=== PATIENT | female | born 1990 | race African-American/Black ===

== ENCOUNTER 2017-06-06 10:01 | Emergency (ER) | payer MEDICAID ==
[~2017-06-06] VITALS: Ht 162.6 cm; Wt 79.4 kg
[2017-06-06 10:01] VITALS: BP 147/94
[~2017-06-06 10:01] MED LIST: BENADRYL25 MG ORAL; BENADRYL50 MG ORAL; KEFLEX500 MG ORAL; NKM; PREDNISONE20 MG ORAL; RANITIDINE HCL150 MG ORAL
[2017-06-06] MEDS ORDERED: NKM (10:17)
[2017-06-06] MEDS ORDERED: DiphenhydrAMINE 50mg/ml Inj IM ONE (10:45)
[2017-06-06 11:25] LABS: APPEARANCE,URINE CLOUDY; KETONES,URINE NEGATIVE (NEGATIVE); LEUKOCYTE ESTERASE ,URINE NEGATIVE (NEGATIVE); NITRITE,URINE POSITIVE (NEGATIVE); PH,URINE 6 (4.5-8.0); PROTEIN,URINE NEGATIVE (NEGATIVE); UROBILINOGEN,URINE NORMAL MG/DL (0.0-1.0)
[2017-06-06 11:32] LABS: BACTERIA,URINE MANY /HPF; SQUAMOUS EPITHELIAL CELL,UR MODERATE /LPF (NONE/OCC); WBC,URINE 0-2 /HPF (0 - 2)
[2017-06-06] MEDS ORDERED: BENADRYL25 MG ORAL (12:23)
[2017-06-06] MEDS ORDERED: PREDNISONE20 MG ORAL (12:23)
[2017-06-06] MEDS ORDERED: Bacitracin Oint UD TOPIC ONE (12:28)
[2017-06-06 12:38] VITALS: BP 147/94
--- NOTE | 2017-06-07 14:15 | Emergency Room Report ---
History of Present Illness General Chief Complaint: Eye Problems Source: Patient, EMS Present Illness HPI Patient is a 27-year-old female presented after increased bilateral eye redness and swelling. Patient was noted to have prior history of allergic reactions with similar symptoms. She reports having some small amount of lip swelling. She denies any new food exposure. She prior similar symptoms. She reports having generalized itching. She denies any recent trauma. Allergies: Coded Allergies: No Known Allergies (Unverified , 04/30/14) Patient History Past Medical History: see triage record Last Menstrual Period: 2 weeks Now: No Reviewed Nursing Documentation: PMH: Agreed, PSxH: Agreed Nursing Documentation-PMH Past Medical History: No Stated History Review of Systems All Other Systems: negative except mentioned in HPI Physical Exam Vital Signs Date Time Temp Pulse Resp B/P (MAP) Pulse Ox O2 Delivery O2 Flow Rate FiO2 06/06/17 09:51 97.3 97 16 147/94 99 Room Air General Appearance: well appearing, no apparent distress, alert, GCS 15 Head: normocephalic, atraumatic ENT: hearing grossly normal, normal voice Neck: full range of motion, supple Respiratory: no respiratory distress, speaking full sentences Cardiovascular #1: normal inspection, regular rate, rhythm, no edema Gastrointestinal: normal inspection, non tender, soft Musculoskeletal: no calf tenderness Neurologic: normal inspection, alert, oriented x3, responsive, normal gait Psychiatric: mood/affect normal Skin: no rash Medical Decision Making Diagnostic Impression: Primary Impression: Allergic reaction ER Course Patient presented for skin rash and eye swelling. Differential diagnoses included was not limited to allergic reaction, nephrotic syndrome, iritis conjunctivitis, angioedema among others. Patient's benign exam and does not appear to require any further imaging or laboratory testing at this time. The patient was given steroids as well as Benadryl with improvement in her symptoms. The patient is advised to follow up with primary care doctor in 1-2 days. Patient is advised to return if any worsening condition or if any changes in status that are concerning. Last Vital Signs Date Time Temp Pulse Resp B/P (MAP) Pulse Ox O2 Delivery O2 Flow Rate FiO2 06/06/17 12:38 97.3 97 16 147/94 99 Room Air Status: improved Disposition: HOME, SELF-CARE Condition: Stable Scripts Diphenhydramine Hcl* (BENADRYL*) 25 Mg Capsule 25 MG ORAL Q6H Y for Itching, #30 CAP Prov: Pravin Gupta 06/06/17 Prednisone* (PREDNISONE*) 20 Mg Tablet 40 MG ORAL DAILY, #10 TAB Prov: Pravin Gupta 06/06/17 Patient Instructions: Pravin Gee Jun 07, 2017 14:15
== END 2017-06-06 12:39 | disposition home or self-care (01) ==
LOC: EDBD 10:01 → EMR 11:15
DX: T78.40XA Allergy, unspecified, initial encounter (principal); X58.XXXA Exposure to other specified factors, initial encounter; L29.9 Pruritus, unspecified; M79.89 Other specified soft tissue disorders
CPT/HCPCS: 81003; 81025; 87086; 87181; 96372; 99284; J1200